=== PATIENT | male | born 1970 | race American Indian/Alaskan Native ===

== ENCOUNTER 2021-05-25 11:12 | Emergency (ER) | payer SELFPAY ==
[2021-05-25 12:07] VITALS: BP 101/64
[2021-05-25] MEDS ORDERED: methylPREDNISolone Sod Succinate 125 MG/2 ML INJ IM ONE (12:26)
--- NOTE | 2021-05-25 12:33 | Emergency Department Report ---
ED General Adult HPI - General Chief complaint: Skin Rash Stated complaint: RASH,ALCOHOL WITHDRAWL Time Seen by Provider: 05/25/21 12:09 Source: patient Mode of arrival: Ambulatory Limitations: No Limitations - History of Present Illness Initial comments: This 51-year-old male presents emergency department chief complaint of 2 weeks of an itchy rash that started on his scalp and is now all over his torso. He reports he used a new hair product in his hair and then went to [place] on vacation and since coming back he has noticed this rash is becoming more itching and burning. He denies any difficulty breathing, difficulty swallowing, oral lesions, fever, chills, night sweats, headache, discomfort or vision, chest pain or shortness of breath, weakness or any other associated symptoms. He does also report he got bit in the left hand by a stray dog about a month ago and overall the wound is healing well. He also reports he drinks alcohol daily and has tried to cut back recently but noted when he does not drink in the mornings by the evenings he will start having tremors. He denies any desire for inpatient alcohol treatment at this time. He denies any associate fever, chills, night sweats, headache, dizziness, blurry vision, chest pain or shortness of breath, weakness or any other associated symptoms. Severity scale (0 -10): 0 - Related Data Previous Rx's Medication Instructions Recorded Last Taken Type hydrOXYzine PAMOATE [Vistaril] 25 mg PO Q6HR PRN #30 capsule 05/25/21 Unknown Rx methylPREDNISolone [Medrol 4MG 4 mg PO ONCE #1 05/25/21 Unknown Rx DOSEPAK (21 tabs)] Allergies Allergy/AdvReac Type Severity Reaction Status Date / Time No Known Allergies Allergy Unverified 05/25/21 12:07 ED Review of Systems ROS: Stated complaint: RASH,ALCOHOL WITHDRAWL Other details as noted in HPI Comment: All other systems reviewed and negative Constitutional: denies: chills, fever Eyes: denies: eye pain, eye discharge, vision change ENT: denies: ear pain, throat pain Respiratory: denies: cough, shortness of breath, wheezing Cardiovascular: denies: chest pain, palpitations Endocrine: no symptoms reported Gastrointestinal: denies: abdominal pain, nausea, diarrhea Genitourinary: denies: urgency, dysuria Musculoskeletal: denies: back pain, joint swelling, arthralgia Skin: as per HPI, rash. denies: lesions Neurological: denies: headache, weakness, paresthesias Psychiatric: denies: anxiety, depression Hematological/Lymphatic: denies: easy bleeding, easy bruising ED Past Medical Hx - Medications Home Medications: Home Medications Medication Instructions Recorded Confirmed Last Taken Type hydrOXYzine PAMOATE [Vistaril] 25 mg PO Q6HR PRN #30 capsule 05/25/21 Unknown Rx methylPREDNISolone [Medrol 4MG 4 mg PO ONCE #1 05/25/21 Unknown Rx DOSEPAK (21 tabs)] ED Physical Exam - General Limitations: No Limitations General appearance: alert, in no apparent distress - Head Head exam: Present: atraumatic, normocephalic - Eye Eye exam: Present: PERRL, EOMI, scleral icterus Pupils: Present: normal accommodation - ENT ENT exam: Present: normal exam, normal orophraynx, mucous membranes moist - Neck Neck exam: Present: normal inspection, full ROM. Absent: tenderness, meningismus - Respiratory Respiratory exam: Present: normal lung sounds bilaterally. Absent: respiratory distress, wheezes, rales, rhonchi, stridor - Cardiovascular Cardiovascular Exam: Present: regular rate, normal rhythm, normal heart sounds. Absent: systolic murmur, diastolic murmur, rubs, gallop - GI/Abdominal GI/Abdominal exam: Present: soft, normal bowel sounds. Absent: distended, tenderness, guarding, rebound, rigid - Rectal Rectal exam: Present: deferred - Extremities Exam Extremities exam: Present: normal inspection, full ROM, other (There appears to be a healing puncture wound at the base of the fourth digit on the left hand. No erythema, ecchymosis or edema.). Absent: tenderness - Back Exam Back exam: Present: normal inspection, full ROM. Absent: tenderness, CVA tenderness (R), CVA tenderness (L), muscle spasm, paraspinal tenderness - Neurological Exam Neurological exam: Present: alert, oriented X3 - Psychiatric Psychiatric exam: Present: normal affect, normal mood - Skin Skin exam: Present: warm, dry, intact, normal color (There Is a dry scaly erythematous rash to the scalp, neck, torso. This does not involve the mucosal membranes, no oral lesions.), rash ED Course Vital Signs 05/25/21 12:06 Temperature 98.3 F Pulse Rate 87 Respiratory 16 Rate Blood Pressure 101/64 [Right] O2 Sat by Pulse 100 Oximetry ED Medical Decision Making - Medical Decision Making Patient exam was consistent with allergic contact dermatitis. We will treat the patient with IM injection of Solu-Medrol and sent home with Medrol Dosepak, antihistamines and recommended follow-up with a primary care doctor. Patient be given outpatient resources for alcohol treatment and recommend he return [facility] from any change or worsening symptoms. He understood that abruptly stopping alcohol is dangerous and could result in seizures or even and if he starts to have any significant symptoms he needs to return to the [facility] department immediately. He was agreeable this plan. Patient also was educated about the dog bite that if he develops any changing symptoms such as muscle rigidity or pain he needs to return the [facility] part immediately. He verbalized understand the diagnosis, treatment and follow-up instructions all his questions were answered. - Differential Diagnosis Allergic contact dermatitis, cellulitis, photodermatitis, psoriasis Critical care attestation.: If time is entered above; I have spent that time in minutes in the direct care of this critically ill patient, excluding procedure time. ED Disposition Clinical Impression: Allergic contact dermatitis Qualifiers: Contact dermatitis trigger: unspecified trigger Qualified Code(s): L23.9 - Allergic contact dermatitis, unspecified cause Disposition: 01 HOME / SELF CARE / HOMELESS Is pt being admited?: No Condition: Stable Instructions: Contact Dermatitis, [id number] Prescriptions: methylPREDNISolone [Medrol 4MG DOSEPAK (21 tabs)] 4 mg PO ONCE #1 hydrOXYzine PAMOATE [Vistaril] 25 mg PO Q6HR PRN #30 capsule PRN Reason: Itching Forms: Work/School Release Form(ED) Time of Disposition: 12:34
== END 2021-05-25 13:17 | disposition home or self-care (01) ==
LOC: ED 11:12
DX: L23.9 Allergic contact dermatitis, unspecified cause (principal)
CPT/HCPCS: 96372; 99282; J2930